=== PATIENT | male | born 1985 | race Two or more races ===

== ENCOUNTER 2018-04-22 20:20 | Emergency (ER) | payer MEDICAID, OTHER ==
[~2018-04-22] VITALS: Ht 170.2 cm; Wt 88.5 kg
[2018-04-22 20:32] VITALS: BP 135/68
--- NOTE | 2018-04-22 20:38 | NUR ---
[facility] IS AT THE BEDSIDE.
== END 2018-04-22 20:44 | disposition home or self-care (01) ==
LOC: ER 20:22
DX: S16.1XXA Strain of muscle, fascia and tendon at neck level, initial encounter (principal); V49.49XA Driver injured in collision with other motor vehicles in traffic accident, initial encounter; Y93.89 Activity, other specified; Y92.410 Unspecified street and highway as the place of occurrence of the external cause; Y99.8 Other external cause status
CPT/HCPCS: 99283; A4606